=== PATIENT | female | born 1955 | race Caucasian/White ===

== ENCOUNTER 2016-12-03 09:36 | Emergency (ER) | payer BC ==
[~2016-12-03] VITALS: Ht 170.2 cm; Wt 78.0 kg
[2016-12-03 10:53] LABS: EOSINOPHIL (%) 2.6 % (0-5); EOSINOPHIL COUNT 0.2 K/uL (0-0.3); HEMATOCRIT 37.5 % (36.0-46.0); IMMATURE GRANULOCYTE (%) 0.7 % (0.0-0.7); INSTRUMENT ABS NEUTROPHIL CT 3.5 K/uL; LYMPHOCYTE COUNT 1.5 K/uL (1.0-2.8); MCHC 33.9 G/DL (30.0-36.0); MCV 94.5 FL (83-99); MEAN PLAT.VOLUME 9.5 uM^3 (9.5-12.4); MONOCYTE (%) 8.7 % (3-12); MONOCYTE COUNT 0.5 K/uL (0-0.8); NEUTROPHIL (%) 61.5 % (45-76); NEUTROPHIL COUNT 3.5 K/uL (1.8-6.4); PLATELET COUNT 192 K/uL (156-360); RBC DIS.WIDTH-CV 12.3 % (11.8-14.6); RED BLOOD COUNT 3.97 M/uL (3.80-5.20); WHITE BLOOD COUNT 5.7 K/uL (4.1-10.2)
[2016-12-03 11:02] LABS: INTER. NORMALIZED RATIO 1.1; PROTHROMBIN TIME 11.7 SEC (10.2-12.9)
[2016-12-03 11:03] LABS: CHLORIDE 101 mEq/L (99-109); POTASSIUM 3.9 mEq/L (3.7-5.4); SODIUM 135 mEq/L (136-147)
[2016-12-03 11:04] LABS: D-DIMER ELISA < 150.00 ng/mLDDU (<230); PTT 30.3 SEC (25-37)
[2016-12-03 11:05] LABS: GLUCOSE 124 mg/dL (70-99)
[2016-12-03 11:07] LABS: ANION GAP 10 MEQ/L (2-14); TOTAL BILIRUBIN 0.7 mg/dL (0.0-1.0)
[2016-12-03 11:09] LABS: ALKALINE PHOSPHATASE 66 IU/L (3-129); GFR ESTIMATE (CALCULATED) > 59 mL/min/
[2016-12-03 11:10] LABS: UREA NITROGEN (BUN) 13 mg/dL (9-23)
[2016-12-03 11:12] LABS: CREATINE KINASE 97 IU/L (1-294); TOTAL CK 97 IU/L (1-294)
[2016-12-03 11:14] LABS: TROP-I INTERPRETATION NEGATIVE; TROPONIN-I < 0.01 ng/mL (0.0-0.30)
[2016-12-03 11:19] LABS: CK-MB 1.9 ng/mL (0.0-4.9)
[2016-12-03 13:16] LABS: TROP-I INTERPRETATION NEGATIVE; TROPONIN-I < 0.01 ng/mL (0.0-0.30)
[2016-12-03 14:04] VITALS: BP 130/68
== END 2016-12-03 14:05 | disposition home or self-care (01) ==
LOC: EME 09:36
PROVIDERS: Emergency Medicine
DX: R07.89 Other chest pain (principal); F17.200 Nicotine dependence, unspecified, uncomplicated
CPT/HCPCS: 71010; 80053; 82550; 82553; 83880; 84484; 85025; 85379; 85610; 85730; 93005; 99281; 99284